=== PATIENT | male | born 1960 | race Caucasian/White ===

== ENCOUNTER 2019-07-20 04:54 | Emergency (ER) | payer SELFPAY | END 2019-07-20 06:52 | disposition home or self-care (01) | LOC: ERS 04:54 | DX: I10 Essential (primary) hypertension (principal) | CPT/HCPCS: 99283 ==

== ENCOUNTER 2020-03-16 12:45 | Inpatient (IN) | payer OTHER, SELFPAY ==
[2020-03-16] MEDS ORDERED: Diltiazem 125 MG/25 ML ONE (12:54)
--- NOTE | 2020-03-16 16:25 | PDOC.HHP ---
Hospitalist HPI - History of Present Illness Chest pain History of Present Illness: Patient is a 59-year-old male with a history of hypertension diabetes and hyperlipidemia who presented to the emergency department. Patient initially presented to a [facility] emergency department was then transferred to [facility] and ultimately transferred again here. The patient reports that on Thursday he had an episode of palpitations feeling like his heart was fluttering. He got out of bed, drank some coffee, waited a bit of time and the symptoms seem to resolve. He went back to bed and had no further problems. Last night the patient reports that his symptoms recurred. He was short of breath but felt less of the palpitations. He denied any cough or specific chest pain. That time the patient presented to the outside emergency department. There EKG confirmed patient was in A. fib with RVR. This chest x- ray appeared to show some mild central vascular congestion. He was started on a diltiazem drip with some rate control. He was given Lasix. Of note the patient also had a CT scan of the chest due to an elevated d-dimer. The CT showed multiple pulmonary nodules up to 1.3 cm with some nonspecific lymphadenopathy of the mediastinum. This was concerning for the possibility of metastatic disease. Apparently, had an episode of low sats and was started on oxygen. Because the patient was going to require admission he was transferred to [facility] emergency department. In route the patient apparently had a bolus of fluids given.He had a BNP of 147 his heart rate remained well controlled. He was given aspirin. He was subsequently told that his insurance would not cover his hospitalization at that facility and was subsequently transferred here. The patient had no complaints at the time of my exam. Denies palpitations or shortness of breath. States he feels like he could easily get up and go home. He denies any prior cardiac issues. He states that he had previously been taking Jardiance. With that he had lost weight and felt great. Subsequent to that he has not been able to get samples because drug reps or not visiting his primary care provider. Without it he has gained weight and does not feel as well. He also reports that he is supposed to be wearing CPAP but does not. ED Course: As above Hospitalist ROS - Review of Systems Constitutional: denies: fever, chills Respiratory: reports: shortness of breath. denies: cough Cardiovascular: reports: palpitations. denies: chest pain Gastrointestinal: denies: nausea, vomiting All other systems reviewed; all pertinent +/- noted in HPI/Subj - Medication Medications: pravastatin Fri March 16, 2020 13:37 RON Kelley Jt tablet : Strength - 40 mg : ORAL Patient Dose: 1 mg Oral once a day. metFORMIN ThuMarch 16, 2020 13:37 RON Kelley Jt tablet : Strength - 1,000 mg : ORAL Patient Dose: 1 mg Oral once a day. omeprazole ThuMarch 16, 2020 13:38 RON Kelley Jt tablet,delayed release (DR/EC) : Strength - 20 mg : ORAL Patient Dose: 1 mg Oral once a day. amLODIPine ThuMarch 16, 2020 13:39 RON Kelley Jt tablet : Strength - 10 mg : ORAL Patient Dose: 1 mg Oral once a day. hydrALAZINE oral ThuMarch 16, 2020 13:39 RON Kelley Jt tablet : Strength - 10 mg : ORAL Patient Dose: 1 mg Oral 2 times a day. lisinopril ThuMarch 16, 2020 13:39 RON Kelley Jt tablet : Strength - 5 mg : ORAL Patient Dose: 1 mg Oral once a day. Hospitalist History - Past Medical History Cardiac: reports: HTN, Hyperlipidemia Pulmonary: reports: Other (Obstructive sleep apnea) Gastrointestinal: reports: GERD Endocrine: reports: Diabetes - Past Surgical History Past Surgical History: reports: no pertinent history - Family History Family History: reports: cancer (Mother had breast cancer), cardiac disorder ( Father at 57 with coronary disease.) - Social History Smoking Status: Former smoker Tobacco Type: cigarettes Alcohol: reports: None Drugs: reports: marijuana Other Social History: . Patient is full code. His son Archie would be his surrogate decision maker should that become necessary. - Exam General Appearance: NAD, awake alert General - other findings: Obese Neck: supple, symmetric, no JVD, no thyromegaly, no lymphadenopathy, no carotid bruit Heart: no murmur, no gallops, no rubs, irregular Respiratory: CTAB, no wheezes, no rales, no ronchi, normal chest expansion, no tachypnea, normal percussion Gastrointestinal: soft, non-tender, non-distended, normal bowel sounds, no palpable masses, no hepatomegaly, no splenomegaly, no bruit Extremities: no cyanosis, no clubbing, no edema Skin: normal turgor Neurological: cranial nerve grossly intact, normal sensation to touch, no weakness, no focal deficits, no new deficit Musculoskeletal: normal tone, normal strength, no muscle wasting Psychiatric: normal affect, normal behavior, A&O x 3 Hospitalist Results - Labs Additional comment: Outside Labs: UA negative. ABG: pH 7.418, PCO2 38, PO2 58, HCO3 24. BNP 158 Covid screen negative CBC unremarkable. CMP - Gluc 198, Alk Phos 159, AST 56, otherwise nml. Trop 0.01/ - EKG Interpretation EKG: Persistent atrial fibrillation - Radiology Interpretation CT scan - chest Additional Comment: As stated above the patient has multiple pulmonary nodules up to 1.3 cm with some nonspecific mediastinal lymphadenopathy concerning for the possibility of metastatic disease. Hospitalist H&P A/P - Problem (1) Atrial fibrillation with rapid ventricular response Code(s): I48.91 - UNSPECIFIED ATRIAL FIBRILLATION Status: Acute (2) Diabetes mellitus Code(s): E11.9 - TYPE 2 DIABETES MELLITUS WITHOUT COMPLICATIONS Status: Acute (3) Hypertension Code(s): I10 - ESSENTIAL (PRIMARY) HYPERTENSION Status: Acute (4) Hyperlipidemia Code(s): E78.5 - HYPERLIPIDEMIA, UNSPECIFIED Status: Acute (5) Obesity Code(s): E66.9 - OBESITY, UNSPECIFIED Status: Acute - Plan Plan: Atrial fibrillation with rapid ventricular response: Patient is currently well controlled on diltiazem drip. Will give him therapeutic dose of Lovenox. Consult cardiology. We will hold his hydralazine and amlodipine as he will likely need to be on a more chronotropic calcium channel chris. Echo. Lung nodules: Need further evaluation when the afib is controlled. May be worth assessing now , prior to initiating the oral anticoagulation in case a biopsy may be needed. HTN: Continue Lisinopril. Holding Hydralazine and amlodipine for now. Will likely need oral BB or CCB with negative chronotropic affect. DM: Hold metformin since he had the CT PE protocol. Accuchecks. SSI. GERD: PPI.
[2020-03-16] MEDS ORDERED: Dextrose 5% in Water 1,000 ML IV PRN (16:43)
[2020-03-16] MEDS ORDERED: Dextrose 50% Abboject 50 ML SYRINGE SLOW IVP PRN (16:43)
[2020-03-16] MEDS ORDERED: Enoxaparin Sodium 120 MG/0.8 ML SYRINGE SC SCH ×2 (16:45→21:00)
[2020-03-16] MEDS ORDERED: metFORMIN 500 MG TAB PO SCH (17:00)
[2020-03-16] MEDS ORDERED: Amlodipine 10 MG TAB PO SCH (18:15)
[2020-03-16] MEDS: hydrALAZINE 10 MG TAB PO SCH (20:16)
[2020-03-16] MEDS ORDERED: Atorvastatin Calcium 10 MG TAB PO SCH (21:00)
--- NOTE | 2020-03-17 00:01 | CON ---
DATE OF CONSULTATION: 03/16/2020 INDICATION FOR CONSULTATION: A 59-year-old gentleman with new-onset atrial fibrillation with rapid ventricular response. HISTORY OF PRESENT ILLNESS: This very pleasant 59-year-old morbidly obese gentleman has had no previous cardiac history that he is aware of, but does have multiple risk factors for coronary disease. On Thursday evening, he noticed some palpitations, became short of breath, had some coughing. He then had some coffee, went back to bed and felt better and on evening, he had similar episodes, became more short of breath with heart rate also increasing and this morning, he woke up and decided to go to the emergency room at which time he was found to be in atrial fibrillation with rapid ventricular response. He was transferred [facility] to the [facility] and was informed that his insurance would not be accepted, they would not pay for his hospitalization. He was then transferred to [facility]. In the interim at [facility], he did undergo a CT scan which showed multiple pulmonary nodules up to 1.3 cm in diameter with mediastinal adenopathy with up to 2 cm lymph nodes noted. He also had some decrease in O2 saturations, however, this has improved since being here, being placed on oxygen. He was seen in the emergency room here, and he denied any chest pain. He has not had any chest pain throughout this, he did have some tightness, but he has had some recent coughing, but otherwise, he has not had any significant chest discomfort. EKG does not show any evidence of ischemia, and cardiac enzymes remain negative. At this time, he remains in atrial fibrillation. He is on IV diltiazem. The heart rate is anywhere between 90 to low 100s, and his blood pressure in the ER was improved, however, now is back up to the 190 systolically. He has not had his home medications yet, and we will reinstate these medications in order to lower the blood pressure. PAST MEDICAL HISTORY: Significant for hypertension, hypercholesterolemia, type 2 diabetes, sleep apnea. He does not wear mask. He has a history of pancreatitis frequently, but none in the last several years. SOCIAL HISTORY: He is . He has one child with no heart disease. He occasionally has marijuana on a social basis. He has no cigarette use. No alcohol use. He worked. 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 FAMILY HISTORY: His mother had breast cancer. Father at age 57 from coronary artery disease. ALLERGIES: NONE. MEDICATIONS: At home include: 1. Metformin. 2. Amlodipine. 3. Hydralazine. 4. Lisinopril. REVIEW OF SYSTEMS: He wears glasses. He has gastroesophageal reflux disease. He had the recent shortness of breath. Otherwise, review of systems is unremarkable. He did say he lost about 27 pounds since December after starting on Jardiance. Medication was then stopped, either he could not afford the medication or did not get the medicine, and then he has gained a few pounds back. Otherwise, his 12-point review of systems is unremarkable except for what was noted in the history of the present illness. PHYSICAL EXAMINATION: GENERAL: Reveals a very pleasant, well-developed, well-nourished gentleman, who is overweight. VITAL SIGNS: Blood pressure 123/94, heart rate is in the 90s to 100 and is irregular, respiratory rate is 20. HEENT: Shows the head to be normocephalic and atraumatic. Carotid pulses are present. There were no bruits. CHEST: Clear to auscultation. I could not hear any significant rales, rhonchi, or wheezing. CARDIOVASCULAR: Reveals an irregularly irregular rhythm. I did not hear any gross murmurs, heaves, thrills, bruits or rubs. ABDOMINAL: Exam shows morbid obesity without tenderness. I cannot palpate any masses. Positive bowel sounds are present. EXTREMITIES: Showed no clubbing, cyanosis, or edema. Pedal pulses are present. NEUROLOGICAL: He appears to be fully intact. There were no gross focal motor deficits. He is able to ambulate without difficulties. SKIN: Warm and dry. DIAGNOSTIC DATA: EKG shows atrial fibrillation with no ischemic changes. Heart rate was 99 beats per minute. Laboratory data was from an outside facility, but WBC was 10.2. BNP was 147. Cardiac enzymes are negative. Blood sugar was 198. I did not have any other laboratory data at this time. IMPRESSION: 1. Atrial fibrillation with rapid ventricular response, which has been under much better control with IV diltiazem. An echocardiogram has been ordered, and further recommendations for his atrial fibrillation concern will depend on the results of the echocardiogram, and the size of the left atrium and also left ventricular systolic function. I did have a long discussion with the patient about the possible etiologies of his atrial fibrillation and certainly given his history of diabetes, hypertension, hypercholesterolemia, he could have underlying coronary artery disease, and this will also need to be evaluated either by stress testing or cardiac catheterization. 2. Diabetes. This will be dealt with by the primary care service. The blood sugar was 198. Hopefully, he can go back on to the Jardiance which he said controlled the blood sugar well and also helped his weight. 3. Hypertension. We will need to reinstate his home medications in order to lower the blood pressure. We will continue to monitor this. 4. Hypercholesterolemia. He has been on pravastatin previously. I would resume this medication also now that he has been placed on atorvastatin since being in the hospital. 5. On the CT scan, he was noted to have pulmonary nodules, and I believe the finger waver has also been consulted on the patient. Obviously, if he has been found to have some type of malignancy this will play a significant role in how we treat this patient with his atrial fibrillation. HOSPITAL MEDICATIONS: At this time his medications in the hospital included: 1. IV diltiazem. 2. Aspirin 325 mg a day. 3. Lovenox. 4. Atorvastatin 10 mg a day. 5. Lisinopril 5 mg a day. 6. Protonix 40 mg a day. 7. Insulin p.r.n. as needed for the diabetes. His CHADS-VASc score is approximately 3. The patient will need to be on oral anticoagulation. Hopefully, we will be able to convert the patient back to sinus rhythm, but he certainly does have a risk for embolic phenomenon. Once he is back to sinus rhythm, we will need to find medication hopefully to keep him in sinus rhythm. If he converts with the diltiazem, then obviously we can continue this medication or he may need other potent antiarrhythmics. However, we will need to determine whether or not he has any underlying coronary artery disease in the interim. Job ID: [id number]
[2020-03-17] MEDS: Diltiazem HCl 125 MG, Admixture Fee 1 EACH in Sodium Chloride 0.9% 100 ML IVPB SCH ×2 (04:57→20:28)
[2020-03-17 05:19] LABS: Anion Gap 11 mmol/L (10-20); BUN (Urea Nitrogen) 9 mg/dL (8.4-25.7); Calc. Creatinine Clearance 201 mL/min (70-130); Calcium 9.2 mg/dL (7.8-10.44); Carbon Dioxide 28 mmol/L (22-29); Chloride 102 mmol/L (98-107); Estimated GFR-MDRD Greater than 90; Glucose 188 mg/dL (70-105); Potassium 3.7 mmol/L (3.5-5.1); Sodium 137 mmol/L (136-145)
[2020-03-17] MEDS: Acetaminophen 325 MG TAB PO PRN (06:18)
[2020-03-17] MEDS: HumaLOG 300 UNITS/3 ML VIAL SC PRN ×3 (06:19→20:33)
[2020-03-17] MEDS ORDERED: Amlodipine 10 MG TAB PO SCH (09:00)
[2020-03-17 10:19] LABS: Hemoglobin 13.4 g/dL (14.0-18.0); Platelet Count 180 thou/uL (130-400)
[2020-03-17] MEDS: Lisinopril 5 MG TAB PO SCH (10:19)
[2020-03-17] MEDS: hydrALAZINE 10 MG TAB PO SCH ×2 (10:20→20:28)
[2020-03-17] MEDS: Enoxaparin Sodium 120 MG/0.8 ML SYRINGE SC SCH ×2 (10:21→20:29)
--- NOTE | 2020-03-17 11:54 | PDOC.CPN ---
- Subjective Date: 03/17/20 Time: 12:00 Interval history: The pt seen and examined. No overnight events. No cardiac complaints. - Objective Allergies/Adverse Reactions: Allergies Allergy/AdvReac Type Severity Reaction Status Date / Time No Known Allergies Allergy Verified 03/16/20 16:16 Visit Medications: Current Medications Acetaminophen (Tylenol) 650 mg PO Q4H PRN PRN Reason: Headache/Fever/Mild Pain (1-3) Last Admin: 03/17/20 06:18 Dose: 650 mg Amlodipine Besylate (Norvasc) 10 mg PO DAILY [facility] Last Admin: 03/17/20 10:20 Dose: 10 mg Atorvastatin Calcium (Lipitor) 10 mg PO HS [facility] Last Admin: 03/16/20 20:16 Dose: 10 mg Dextrose/Water (Dextrose 50%) 25 gm SLOW IVP PRN PRN PRN Reason: Hypoglycemia Enoxaparin Sodium (Lovenox) 120 mg SC 0900,2100 [facility] Last Admin: 03/17/20 10:21 Dose: 120 mg Glucagon (Glucagon) 1 mg IM PRN PRN PRN Reason: Hypoglycemia Hydralazine HCl (Apresoline) 10 mg PO BID [facility] Last Admin: 03/17/20 10:20 Dose: 10 mg Dextrose/Water (D5w) 1,000 mls @ 0 mls/hr IV .Q0M PRN PRN Reason: Hypoglycemia Diltiazem HCl 125 mg/Miscellaneous Medication 1 each/ Sodium Chloride 125 mls @ 7.5 mls/hr IVPB INF [facility]; Protocol Last Admin: 03/17/20 04:57 Dose: 125 mls Insulin Human Lispro (Humalog) 0 units SC .MILD SLIDING SCALE PRN PRN Reason: Mild Correctional Scale Last Admin: 03/17/20 06:19 Dose: 2 unit Insulin Human Lispro (Humalog) 0 units SC .BEDTIME SLIDING SC PRN PRN Reason: Bedtime Correctional Scale Lisinopril (Zestril) 5 mg PO DAILY [facility] Last Admin: 03/17/20 10:19 Dose: 5 mg Pantoprazole Sodium (Protonix) 40 mg PO DAILY [facility] Last Admin: 03/17/20 10:21 Dose: 40 mg Vital Signs & Weight: Vital Signs Temp Pulse Resp BP Pulse Ox 03/17/20 10:16 98.3 F 88 16 129/75 95 03/17/20 03:16 97.9 F 66 18 154/89 H 92 L Weight 276 lb 3.2 oz - Physical Exam General: alert & oriented x3 HEENT: mucus membranes moist Neck: supple neck Cardiac: irregularly regular Lungs: clear to auscultation Neuro: cranial nerve 2-12 intact - Labs Result Diagrams: 03/17/20 09:31 03/17/20 04:19 - Telemetry Supraventricular conduction: atrial fibrillation - Assessment/Plan Assessment/Plan: 1. New onset Afib with RVR - HR has been 90-100s with Diltiazem @ 7.5mg/h; will start coreg 3.125mg BID from today; on Lovenox BID 2. HTN - has been stable 3. HLD - on Statin 4. DM type 2 - 5. multiple pulmonary nodules up to 1.3 cm in diameter with mediastarnal adenopathy with up to 2cm lymph nodes - 6. Sleep apnea - Per the pt, he has not used Cpap machine at home; strongly recommend to use Cpap or discuss with his doctor about the option of his masks. 7. Obese - the pt is willing to start wt management and regular exercise MAR reviewed Pt. seen and eval. by me. I agree with the A/P by the FOOD SERVICE HELPER. Pt. was seen by pulmonology and advised to be followed as an outpt. Echo; EF mildly decreased. This may be due to the tachycardia associated with the atrial fib. i would advise he undergo stress testing to r/o ischemia as a possible etiology of the atrial fibrillation. If the stress test indicates ischemia then he will be advised to undergo a cardiac cath. prema
[2020-03-17] MEDS ORDERED: Carvedilol 3.125 MG TAB PO SCH (12:00)
[2020-03-17 13:18] VITALS: BMI 35.4
--- NOTE | 2020-03-17 15:29 | CON ---
DATE OF CONSULTATION: 03/17/2020 CONSULTING PHYSICIAN: Doroteo Orta MD REASON FOR CONSULTATION: Lung nodules. HISTORY OF PRESENT ILLNESS: This is a 59-year-old male, who initially presented to the [place] [facility] with shortness of breath. His initial workup consisted of a CT pulmonary angiogram that showed few bilateral pulmonary nodules, the largest of which was 1.3 cm in the left lower lobe. He also had some small bilateral effusions and some near 2 cm mediastinal lymph nodes. I have reviewed the films. He was hospitalized, I believe for atrial fibrillation with a rapid ventricular response and there was a question about the need for further cardiac testing. PAST MEDICAL HISTORY: 1. He has no previous history of cancer. 2. No history of bleeding disorders. 3. No history of exposure to tuberculosis or fungus that he knows of. 4. Hypertension. 5. Hyperlipidemia. 6. Type 2 diabetes mellitus. 7. MALLY. 8. Pancreatitis. PAST SURGICAL HISTORY: None. FAMILY MEDICAL HISTORY: Remarkable for breast cancer in the patient's mother. Coronary artery disease in the patient's father. SOCIAL HISTORY: The patient smoked off and on until age 54. He intermittently smokes marijuana. 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 Does not consume alcohol. REVIEW OF SYSTEMS: Denies hemoptysis. Denies fever, chills, nausea, vomiting, hematemesis, melena, hematochezia, hematuria, or dysuria. PHYSICAL EXAMINATION: VITAL SIGNS: Temperature 98.6, pulse 93, respirations 18, O2 saturation 94% on room air, blood pressure 151/69. GENERAL: The patient is awake, alert, and in no distress. HEENT: Unremarkable. NECK: No adenopathy. No JVD. No deviation of trachea. LUNGS: Clear without wheezing or rhonchi. CARDIAC: Irregularly irregular without murmur. ABDOMEN: Soft and nontender. EXTREMITIES: No clubbing, cyanosis, or edema. LABORATORY DATA: Hematocrit 42.3 and platelet count 180. Sodium 137, potassium 3.7, chloride 102, CO2 of 28, BUN 9, creatinine 0.7, glucose 188. The left lower lobe nodule has a 1.3 cm size. It almost looks hamartomatous in appearance. The other nodules are small. The mediastinal lymph nodes are actually not that impressive. ASSESSMENT: Scattered bilateral pulmonary nodules. In this instance, I would favor granulomatous disease over malignancy as a cause. However, given his smoking history, these bear-watching. Right now, they are too small to biopsy. RECOMMENDATIONS: I first recommend an outpatient PET scan. I am not sure whether or not the patient's insurance will cover that. If he cannot have outpatient PET scan, then he will need to have serial CT scans. No further workup needs to be done while he is in the hospital. I have instructed him to follow up in my office in 2-3 months. We will make further arrangements for testing at that time. Job ID: [id number]
[2020-03-17] MEDS: Carvedilol 3.125 MG TAB PO SCH (17:16)
--- NOTE | 2020-03-17 18:13 | PDOC.HOSPP ---
- Subjective Encounter Date: 03/17/20 Encounter Time: 10:00 Subjective: pt up in bed no complains - Objective Vital Signs & Weight: Vital Signs (12 hours) Temp Pulse Resp BP Pulse Ox 03/17/20 15:47 98.4 F 94 18 144/85 H 94 L 03/17/20 12:11 98.6 F 93 18 151/69 H 94 L 03/17/20 10:16 98.3 F 88 16 129/75 95 Weight Admit Weight 276 lb Weight 276 lb I&O: 03/16/20 03/17/20 03/18/20 06:59 06:59 06:59 Intake Total 690 720 Output Total 1100 850 Balance -410 -130 Result Diagrams: 03/17/20 09:31 03/17/20 04:19 Additional Labs: Accuchecks 03/17/20 03/17/20 03/17/20 17:20 11:25 05:57 POC Glucose 164 H 222 H 199 H 03/16/20 20:32 POC Glucose 154 H Hospitalist ROS - Review of Systems Cardiovascular: denies: chest pain, palpitations, orthopnea, paroxysmal noc. dyspnea, edema, light headedness, other Gastrointestinal: denies: nausea, vomiting, abdominal pain, diarrhea, constipation, melena, hematochezia, other Genitourinary: denies: dysuria, frequency, incontinence, hematuria, retention, other - Medication Medications: Active Medications Generic Name Dose Route Start Last Admin Trade Name Freq PRN Reason Stop Dose Admin Acetaminophen 650 mg 03/16/20 15:57 03/17/20 06:18 Tylenol PO 650 mg Q4H PRN Administration Headache/Fever/Mild Pain (1-3) Atorvastatin Calcium 10 mg 03/16/20 21:00 03/16/20 20:16 Lipitor PO 10 mg HS ALENA Administration Carvedilol 3.125 mg 03/17/20 17:00 03/17/20 17:16 Coreg PO 3.125 mg BID-WM ALENA Administration Enoxaparin Sodium 120 mg 03/17/20 09:00 03/17/20 10:21 Lovenox SC 120 mg 0900,2100 ALENA Administration Hydralazine HCl 10 mg 03/16/20 21:00 03/17/20 10:20 Apresoline PO 10 mg BID ALENA Administration Diltiazem HCl 125 mg/ 125 mls @ 7.5 mls/hr 03/17/20 03:45 03/17/20 04:57 Miscellaneous Medication 1 IVPB 125 mls each/ Sodium Chloride INF ALENA Administration Protocol Insulin Human Lispro 0 units 03/16/20 16:43 03/17/20 12:13 Humalog SC 3 unit .MILD SLIDING SCALE PRN Administration Mild Correctional Scale Lisinopril 5 mg 03/17/20 09:00 03/17/20 10:19 Zestril PO 5 mg DAILY ALENA Administration Pantoprazole Sodium 40 mg 03/17/20 09:00 03/17/20 10:21 Protonix PO 40 mg DAILY ALENA Administration - Exam Neck: negative: supple, symmetric, no JVD, no thyromegaly, no lymphadenopathy, no carotid bruit, JVD Heart: negative: RRR, no murmur, no gallops, no rubs, normal peripheral pulses, irregular, diminshed peripheral pulses, murmur present, II/IV, III/IV Respiratory: negative: CTAB, no wheezes, no rales, no ronchi, normal chest expansion, no tachypnea, normal percussion, rales, rhonchi, tachypneic, wheezes Hosp A/P (1) Atrial fibrillation with rapid ventricular response Code(s): I48.91 - UNSPECIFIED ATRIAL FIBRILLATION Status: Acute (2) Pulmonary nodule Code(s): R91.1 - SOLITARY PULMONARY NODULE Status: Acute (3) Diabetes mellitus Code(s): E11.9 - TYPE 2 DIABETES MELLITUS WITHOUT COMPLICATIONS Status: Acute (4) Hyperlipidemia Code(s): E78.5 - HYPERLIPIDEMIA, UNSPECIFIED Status: Acute (5) Hypertension Code(s): I10 - ESSENTIAL (PRIMARY) HYPERTENSION Status: Acute (6) Obesity Code(s): E66.9 - OBESITY, UNSPECIFIED Status: Acute - Plan pt up in bed no complains. pt still has Cardizem. per pulmonary note no acute intervention for now. pt states that he recently had a viral infection. echo indicated ef of 45-50%
[2020-03-17] MEDS: Atorvastatin Calcium 20 MG TAB PO SCH (20:29)
[2020-03-18 04:10] LABS: #Eosinphils 0.1 thou/uL (0.0-0.7); #Monocytes 0.5 thou/uL (0.11-0.59); #Neutrophils 5.3 thou/uL (1.40-6.50); %Basophils 0.5 % (0.0-1.0); %Eosinophils 1.4 % (0.0-10.0); %Monocytes 5.8 % (0.0-10.0); %Neutrophils 67.3 % (42.0-75.0); Hemoglobin 13.4 g/dL (14.0-18.0); Mean Corpuscular HGB CONC 31.5 g/dL (32.0-36.0); Mean Corpuscular Hemoglobin 27.1 pg (27.0-31.0); Mean Corpuscular Volume 85.8 fL (78.0-98.0); Platelet Count 175 thou/uL (130-400); RBC Distribution Width 13.3 % (11.5-14.5); Red Blood Cell (RBC) Count 4.97 mill/uL (4.70-6.10); White Blood Cell (WBC) Count 7.9 thou/uL (4.8-10.8)
[2020-03-18 04:30] LABS: Anion Gap 12 mmol/L (10-20); BUN (Urea Nitrogen) 11 mg/dL (8.4-25.7); Calc. Creatinine Clearance 180 mL/min (70-130); Carbon Dioxide 27 mmol/L (22-29); Chloride 104 mmol/L (98-107); Estimated GFR-MDRD Greater than 90; Glucose 252 mg/dL (70-105); Sodium 139 mmol/L (136-145)
[2020-03-18] MEDS ORDERED: Regadenoson 0.4 MG/5 ML SYRINGE ONE (10:44)
[2020-03-18] MEDS ORDERED: Polyethylene Glycol 3350 17 GM Packet PO PRN (11:07)
[2020-03-18] MEDS ORDERED: Bisacodyl 5 MG TAB PO SCH (11:15)
--- NOTE | 2020-03-18 12:41 | PDOC.CPN ---
- Subjective Date: 03/18/20 Time: 12:44 Interval history: The pt seen and examined. No overnight events. No cardiac complaints. - Objective Allergies/Adverse Reactions: Allergies Allergy/AdvReac Type Severity Reaction Status Date / Time No Known Allergies Allergy Verified 03/16/20 16:16 Visit Medications: Current Medications Acetaminophen (Tylenol) 650 mg PO Q4H PRN PRN Reason: Headache/Fever/Mild Pain (1-3) Last Admin: 03/17/20 06:18 Dose: 650 mg Amlodipine Besylate (Norvasc) 5 mg PO DAILY [facility] Atorvastatin Calcium (Lipitor) 20 mg PO [facility] Last Admin: 03/17/20 20:29 Dose: 20 mg Bisacodyl (Dulcolax) 10 mg PO NOW [facility] Stop: 03/18/20 14:00 Carvedilol (Coreg) 3.125 mg PO BID[facility] Last Admin: 03/17/20 17:16 Dose: 3.125 mg Dextrose/Water (Dextrose 50%) 25 gm SLOW IVP PRN PRN PRN Reason: Hypoglycemia Diltiazem HCl (Cardizem Sr) 90 mg PO BID [facility] Diltiazem HCl (Cardizem Sr) 90 mg PO ONE [facility] Enoxaparin Sodium (Lovenox) 120 mg SC 0900,2100 [facility] Last Admin: 03/17/20 20:29 Dose: 120 mg Glucagon (Glucagon) 1 mg IM PRN PRN PRN Reason: Hypoglycemia Hydralazine HCl (Apresoline) 10 mg PO BID [facility] Last Admin: 03/17/20 20:28 Dose: 10 mg Dextrose/Water (D5w) 1,000 mls @ 0 mls/hr IV .Q0M PRN PRN Reason: Hypoglycemia Diltiazem HCl 125 mg/Miscellaneous Medication 1 each/ Sodium Chloride 125 mls @ 7.5 mls/hr IVPB INF [facility]; Protocol Last Admin: 03/17/20 20:28 Dose: 125 mls Insulin Human Lispro (Humalog) 0 units SC .MILD SLIDING SCALE PRN PRN Reason: Mild Correctional Scale Last Admin: 03/17/20 12:13 Dose: 3 unit Insulin Human Lispro (Humalog) 0 units SC .BEDTIME SLIDING SC PRN PRN Reason: Bedtime Correctional Scale Last Admin: 03/17/20 20:33 Dose: 2 unit Lisinopril (Zestril) 5 mg PO DAILY [facility] Last Admin: 03/17/20 10:19 Dose: 5 mg Pantoprazole Sodium (Protonix) 40 mg PO DAILY [facility] Last Admin: 03/17/20 10:21 Dose: 40 mg Polyethylene Glycol (Miralax) 17 gm PO DAILY [facility] Polyethylene Glycol (Miralax) 17 gm PO DAILYPRN PRN PRN Reason: Constipation Sodium Chloride (Flush - Normal Saline) 10 ml IVF Q12HR [facility] Last Admin: 03/18/20 10:17 Dose: Not Given Sodium Chloride (Flush - Normal Saline) 10 ml IVF PRN PRN PRN Reason: Saline Flush Vital Signs & Weight: Vital Signs Temp Pulse Resp BP Pulse Ox 03/18/20 07:57 98.1 F 86 20 121/77 92 L 03/18/20 03:06 97.6 F 89 18 122/65 92 L Admit Weight 276 lb Weight 281 lb 9.6 oz - Physical Exam General: alert & oriented x3 HEENT: mucus membranes moist Neck: supple neck Cardiac: irregularly regular Lungs: clear to auscultation Neuro: cranial nerve 2-12 intact Extremities: no edema - Labs Result Diagrams: 03/18/20 03:55 03/18/20 03:55 - Telemetry Supraventricular conduction: atrial fibrillation - Assessment/Plan Assessment/Plan: 1. New onset Afib with RVR - HR has been 60-90s with Coreg 3.125mg BID and Diltiazem @ 7.5mg/h which will changed to 90mg BID from today; on Lovenox BID; stress test was done today and the result is pending 2. HTN - has been stable 3. HLD - on Statin 4. DM type 2 - 5. multiple pulmonary nodules up to 1.3 cm in diameter with mediastarnal adenopathy with up to 2cm lymph nodes - 6. Sleep apnea - Per the pt, he has not used Cpap machine at home; strongly recommend to use Cpap or discuss with his doctor about the option of his masks. 7. Obese - the pt is willing to start wt management and regular exercise MAR reviewed * Echo on 03/17/2020 with EF 45-50%, mod LAE, mild-mod MR, and mild TR <Addendum at 1750> HR went up to 110s with Diltiazem 90mg BID and Coreg 3.125mg BID; will increase Coreg to 6.25mg BID from this PM Pt. seen and eval. by me. 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 The second part of the stress test is for tomorrow. He is still tachycardic. Coreg increased. Add digoxin if HR still elevated. prema
[2020-03-18] MEDS ORDERED: Diltiazem HCl SR 90 mg Capsule PO SCH (12:45)
--- NOTE | 2020-03-18 13:29 | PDOC.HOSPP ---
- Subjective Encounter Date: 03/18/20 Encounter Time: 08:45 Subjective: pt up in bed did not sleep well last night. - Objective Vital Signs & Weight: Vital Signs (12 hours) Temp Pulse Resp BP Pulse Ox 03/18/20 07:57 98.1 F 86 20 121/77 92 L 03/18/20 03:06 97.6 F 89 18 122/65 92 L Weight Admit Weight 276 lb Weight 281 lb 9.6 oz I&O: 03/17/20 03/18/20 03/19/20 06:59 06:59 06:59 Intake Total 690 1610 Output Total 1100 1450 320 Balance -410 160 -320 Result Diagrams: 03/18/20 03:55 03/18/20 03:55 Additional Labs: Accuchecks 03/18/20 03/18/20 03/17/20 10:59 05:48 20:21 POC Glucose 202 H 224 H 247 H 03/17/20 17:20 POC Glucose 164 H Hospitalist ROS - Review of Systems Cardiovascular: denies: chest pain, palpitations, orthopnea, paroxysmal noc. dyspnea, edema, light headedness, other Gastrointestinal: denies: nausea, vomiting, abdominal pain, diarrhea, constipation, melena, hematochezia, other Genitourinary: denies: dysuria, frequency, incontinence, hematuria, retention, other - Medication Medications: Active Medications Generic Name Dose Route Start Last Admin Trade Name Freq PRN Reason Stop Dose Admin Acetaminophen 650 mg 03/16/20 15:57 03/17/20 06:18 Tylenol PO 650 mg Q4H PRN Administration Headache/Fever/Mild Pain (1-3) Atorvastatin Calcium 20 mg 03/17/20 21:00 03/17/20 20:29 Lipitor PO 20 mg HS [facility] Administration Carvedilol 3.125 mg 03/17/20 17:00 03/17/20 17:16 Coreg PO 3.125 mg BID-WM [facility] Administration Enoxaparin Sodium 120 mg 03/17/20 09:00 03/17/20 20:29 Lovenox SC 120 mg 0900,2100 [facility] Administration Hydralazine HCl 10 mg 03/16/20 21:00 03/17/20 20:28 Apresoline PO 10 mg BID [facility] Administration Diltiazem HCl 125 mg/ 125 mls @ 7.5 mls/hr 03/17/20 03:45 03/17/20 20:28 Miscellaneous Medication 1 IVPB 125 mls each/ Sodium Chloride INF [facility] Administration Protocol Insulin Human Lispro 0 units 03/16/20 16:43 03/17/20 12:13 Humalog SC 3 unit .MILD SLIDING SCALE PRN Administration Mild Correctional Scale Insulin Human Lispro 0 units 03/16/20 16:43 03/17/20 20:33 Humalog SC 2 unit .BEDTIME SLIDING SC PRN Administration Bedtime Correctional Scale Lisinopril 5 mg 03/17/20 09:00 03/17/20 10:19 Zestril PO 5 mg DAILY [facility] Administration Pantoprazole Sodium 40 mg 03/17/20 09:00 03/17/20 10:21 Protonix PO 40 mg DAILY [facility] Administration Sodium Chloride 10 ml 03/17/20 21:00 03/18/20 10:17 Flush - Normal Saline IVF Not Given Q12HR [facility] - Exam Heart: negative: RRR, no murmur, no gallops, no rubs, normal peripheral pulses, irregular, diminshed peripheral pulses, murmur present, II/IV, III/IV Respiratory: negative: CTAB, no wheezes, no rales, no ronchi, normal chest expansion, no tachypnea, normal percussion, rales, rhonchi, tachypneic, wheezes Gastrointestinal: negative: soft, non-tender, non-distended, normal bowel sounds , no palpable masses, no hepatomegaly, no splenomegaly, no bruit, no guarding, no rigidity, tender to palpation, distended, diminished bowl sounds, voluntary guarding Extremities: negative: no cyanosis, no clubbing, no edema, 1+ LE edema, 2+ LE edema, clubbing Hosp A/P (1) Atrial fibrillation with rapid ventricular response Code(s): I48.91 - UNSPECIFIED ATRIAL FIBRILLATION Status: Acute (2) Pulmonary nodule Code(s): R91.1 - SOLITARY PULMONARY NODULE Status: Acute (3) Diabetes mellitus Code(s): E11.9 - TYPE 2 DIABETES MELLITUS WITHOUT COMPLICATIONS Status: Acute (4) Hyperlipidemia Code(s): E78.5 - HYPERLIPIDEMIA, UNSPECIFIED Status: Acute (5) Hypertension Code(s): I10 - ESSENTIAL (PRIMARY) HYPERTENSION Status: Acute (6) Obesity Code(s): E66.9 - OBESITY, UNSPECIFIED Status: Acute - Plan pt up in bed no complains. pt still has Cardizem. per pulmonary note no acute intervention for now. pt states that he recently had a viral infection. echo indicated ef of 45-50% 03/18 per pulm he will follow up as outpatient and i have told him about getting a PET scan. He is going for stress test today and his iv Cardizem will be switched to to oral. he is on Lovenox will switch to eliquis on discharge.
[2020-03-18] MEDS: Diltiazem HCl 125 MG, Admixture Fee 1 EACH in Sodium Chloride 0.9% 100 ML IVPB SCH (13:50)
[2020-03-18] MEDS: Enoxaparin Sodium 120 MG/0.8 ML SYRINGE SC SCH ×2 (14:04→20:42)
[2020-03-18] MEDS: hydrALAZINE 10 MG TAB PO SCH ×2 (14:25→20:44)
[2020-03-18] MEDS: Carvedilol 3.125 MG TAB PO SCH ×2 (14:25→17:10)
[2020-03-18] MEDS: Amlodipine 5 MG TAB PO SCH (14:56)
[2020-03-18] MEDS: Lisinopril 5 MG TAB PO SCH (14:56)
[2020-03-18] MEDS ORDERED: Carvedilol 3.125 MG TAB PO SCH (18:00)
[2020-03-18] MEDS ORDERED: Digoxin 0.5 MG/2 ML AMP SLOW IVP PRN (19:15)
[2020-03-18] MEDS ORDERED: Digoxin 0.5 MG/2 ML AMP SLOW IVP SCH (19:15)
[2020-03-18] MEDS: Acetaminophen 325 MG TAB PO PRN (19:27)
[2020-03-18] MEDS: Diltiazem HCl SR 90 mg Capsule PO SCH (20:43)
[2020-03-18] MEDS: Atorvastatin Calcium 20 MG TAB PO SCH (20:44)
[2020-03-18] MEDS: HumaLOG 300 UNITS/3 ML VIAL SC PRN (20:45)
[2020-03-19] MEDS: Diltiazem HCl SR 90 mg Capsule PO SCH (08:55)
[2020-03-19] MEDS: hydrALAZINE 10 MG TAB PO SCH (08:55)
[2020-03-19] MEDS: Lisinopril 5 MG TAB PO SCH (08:55)
[2020-03-19] MEDS: Amlodipine 5 MG TAB PO SCH (08:55)
[2020-03-19] MEDS: Carvedilol 6.25 MG TAB PO SCH ×2 (08:55→16:48)
[2020-03-19] MEDS: Enoxaparin Sodium 120 MG/0.8 ML SYRINGE SC SCH (08:56)
[2020-03-19] MEDS ORDERED: Polyethylene Glycol 3350 17 GM Packet PO SCH (09:00)
[2020-03-19] MEDS ORDERED: Iopamidol 370 76% 100 ML VIAL ONE (09:06)
[2020-03-19] MEDS ORDERED: Iopamidol 370 76% 50 ML VIAL FS ONE (09:06)
--- NOTE | 2020-03-19 09:08 | NM ---
EXAM: NM Cardiac Stress W EF WF PROVIDED CLINICAL HISTORY: Atrial fibrillation, hypertension, chest pain, shortness of breath. COMPARISON: 06/19/2009 FINDINGS: There is heterogeneous uptake seen within the left ventricular myocardium with an area of reversibili ty seen involving the distal anterolateral left ventricular wall. Relatively fixed defect is seen involving the posterior apical wall which may represent an area of mild scarring. There is dilatation of the left ventricle. Quantitative analysis demonstrates significant global hypokinesis. There is normal ventricular wall thickening. Calculated left ventricular ejection fraction is 28%. Left ventri cular ejection fraction on study in 2008 was 43%. IMPRESSION: 1. Abnormal myocardial perfusion study with [id number] area of reversibility involving the dist al anterolateral left ventricular wall. 2. Dilatation of the left ventricle. 3. Global hypokinesis and diminished LVEF of 28%.
[2020-03-19] MEDS ORDERED: Communication Order-Pharmacy FS SCH (12:45)
--- NOTE | 2020-03-19 12:53 | PDOC.CPN ---
- Subjective Date: 03/19/20 Time: 12:00 - Review of Systems General: denies: fever/chills, weight/appetite/sleep changes, night sweats, fatigue Respiratory: denies: cough, congestion, shortness of breath, exercise intolerance Cardiovascular: denies: chest pain, palpitation, edema, paroxysmal nocturnal dyspnea, orthopnea Gastrointestinal: denies: nausea, vomiting, diarrhea, constipation, abd pain, GI bleeding Musculoskeletal: denies: pain, tenderness, stiffness, swelling, arthritis/ arthralgias Neurological: denies: numbness, syncope, seizure, weakness - Objective Allergies/Adverse Reactions: Allergies Allergy/AdvReac Type Severity Reaction Status Date / Time No Known Allergies Allergy Verified 03/16/20 16:16 Visit Medications: Current Medications Acetaminophen (Tylenol) 650 mg PO Q4H PRN PRN Reason: Headache/Fever/Mild Pain (1-3) Last Admin: 03/18/20 19:27 Dose: 650 mg Amlodipine Besylate (Norvasc) 5 mg PO DAILY [facility] Last Admin: 03/19/20 08:55 Dose: 5 mg Atorvastatin Calcium (Lipitor) 20 mg PO HS [facility] Last Admin: 03/18/20 20:44 Dose: 20 mg Carvedilol (Coreg) 6.25 mg PO BID-WM [facility] Last Admin: 03/19/20 08:55 Dose: 6.25 mg Dextrose/Water (Dextrose 50%) 25 gm SLOW IVP PRN PRN PRN Reason: Hypoglycemia Diltiazem HCl (Cardizem Sr) 90 mg PO BID [facility] Last Admin: 03/19/20 08:55 Dose: 90 mg Enoxaparin Sodium (Lovenox) 120 mg SC 0900,2100 [facility] Last Admin: 03/19/20 08:56 Dose: 120 mg Glucagon (Glucagon) 1 mg IM PRN PRN PRN Reason: Hypoglycemia Hydralazine HCl (Apresoline) 10 mg PO BID [facility] Last Admin: 03/19/20 08:55 Dose: 10 mg Dextrose/Water (D5w) 1,000 mls @ 0 mls/hr IV .Q0M PRN PRN Reason: Hypoglycemia Insulin Human Lispro (Humalog) 0 units SC .MILD SLIDING SCALE PRN PRN Reason: Mild Correctional Scale Last Admin: 03/17/20 12:13 Dose: 3 unit Insulin Human Lispro (Humalog) 0 units SC .BEDTIME SLIDING SC PRN PRN Reason: Bedtime Correctional Scale Last Admin: 03/18/20 20:45 Dose: 3 unit Lisinopril (Zestril) 5 mg PO DAILY [facility] Last Admin: 03/19/20 08:55 Dose: 5 mg Miscellaneous Information (Communication Order-Pharmacy) 0 each FS ONE [facility] Pantoprazole Sodium (Protonix) 40 mg PO DAILY [facility] Last Admin: 03/19/20 08:56 Dose: 40 mg Polyethylene Glycol (Miralax) 17 gm PO DAILY [facility] Last Admin: 03/19/20 08:56 Dose: Not Given Polyethylene Glycol (Miralax) 17 gm PO DAILYPRN PRN PRN Reason: Constipation Sodium Chloride (Flush - Normal Saline) 10 ml IVF Q12HR [facility] Last Admin: 03/19/20 08:56 Dose: 10 ml Sodium Chloride (Flush - Normal Saline) 10 ml IVF PRN PRN PRN Reason: Saline Flush Vital Signs & Weight: Vital Signs Temp Pulse Resp BP Pulse Ox 03/19/20 12:00 98.7 F 95 18 148/87 H 97 03/19/20 07:30 97.9 F 79 20 157/97 H 95 03/19/20 03:57 97.7 F 87 20 147/97 H 97 Admit Weight 276 lb Weight 283 lb - Quality Measures Condition: Atrial Fibrillation/Flutter (hx or current) - Physical Exam HEENT: normocephaly Neck: no JVD/HJR, no masses Cardiac: irregularly regular Lungs: clear to auscultation Neuro: grossly intact Abdomen: unremarkable Extremities: no edema Musculoskeletal: normal range of motion - Labs Result Diagrams: 03/18/20 03:55 03/18/20 03:55 - Telemetry Supraventricular conduction: atrial fibrillation - Assessment/Plan Assessment/Plan: 1. New onset Afib with RVR - HR has been 60-90s with Coreg 3.125mg BID and Diltiazem , on Lovenox BID; second 1/2 of stress test was done today and it is positive for ischemia and the EF is severely compromised. Plan for cardiac cath today. Procedure and risks explained to the pt. 2. HTN - has been stable 3. HLD - on Statin 4. DM type 2 - 5. multiple pulmonary nodules up to 1.3 cm in diameter with mediastarnal adenopathy with up to 2cm lymph nodes - 6. Sleep apnea - Per the pt, he has not used Cpap machine at home; strongly recommend to use Cpap or discuss with his doctor about the option of his masks. 7. Obese - the pt is willing to start wt management and regular exercise MAR reviewed * Echo on 03/17/2020 with EF 45-50%, mod LAE, mild-mod MR, and mild TR
[2020-03-19] MEDS ORDERED: Nitroglycerin 100MG/250ML BOT 250 ML ONE (13:10)
[2020-03-19] MEDS ORDERED: Heparin 10,000 UNITS/1 ML VIAL ONE (13:10)
[2020-03-19] MEDS ORDERED: Verapamil 5 MG/2 ML VIAL ONE (13:10)
[2020-03-19] MEDS ORDERED: Midazolam HCl 2 mg/2 ml Vial ONE (13:12)
[2020-03-19] MEDS ORDERED: Sodium Chloride 0.9% 200 ML IV PRN (14:04)
[2020-03-19] MEDS ORDERED: Acetaminophen/Codeine 30-300mg Tablet PO PRN ×2 (14:04)
[2020-03-19] MEDS ORDERED: Nitroglycerin 0.4 MG TAB (25 Tab Bottle) SL PRN (14:04)
[2020-03-19 16:22] VITALS: BP 159/74; TEMP 98.4
[2020-03-19] MEDS ORDERED: Apixaban 5 MG TAB PO SCH (21:00)
== END 2020-03-19 20:41 | disposition home or self-care (01) | DRG 287 ==
LOC: ERS 12:45 → 2NO 14:33
PROVIDERS: ADMIT Internal Medicine; ATTEND Internal Medicine
PROC: 4A023N7 Measurement of Cardiac Sampling and Pressure, Left Heart, Percutaneous Approach (ICD-10-PCS; principal; 2020-03-19)
PROC: B2111ZZ Fluoroscopy of Multiple Coronary Arteries using Low Osmolar Contrast (ICD-10-PCS; 2020-03-19)
PROC: B2151ZZ Fluoroscopy of Left Heart using Low Osmolar Contrast (ICD-10-PCS; 2020-03-19)
DX: I48.91 Unspecified atrial fibrillation (principal); I10 Essential (primary) hypertension; E11.9 Type 2 diabetes mellitus without complications; E78.5 Hyperlipidemia, unspecified; G47.33 Obstructive sleep apnea (adult) (pediatric); K21.9 Gastro-esophageal reflux disease without esophagitis; E66.01 Morbid (severe) obesity due to excess calories; E78.00 Pure hypercholesterolemia, unspecified; Z68.36 Body mass index [BMI] 36.0-36.9, adult; Z79.01 Long term (current) use of anticoagulants
CPT/HCPCS: 36415; 36416; 78452; 80048; 83735; 85014; 85018; 85025; 85049; 93005; 93017; 93306; 93458; 96365; 96366; 99152; 99153; A9500; C1769; J1644; J1650; J2250; J2785; J3490; Q9967

== ENCOUNTER 2020-04-08 01:59 | Inpatient (IN) | payer OTHER ==
[2020-04-08 02:34] LABS: White Blood Cell (WBC) Count 7.7 thou/uL (4.8-10.8)
[2020-04-08 02:35] LABS: #Basophils 0.1 thou/uL (0.0-0.2); #Eosinphils 0.1 thou/uL (0.0-0.7); #Lymphocytes 2.1 thou/uL (1.20-3.40); #Monocytes 0.5 thou/uL (0.11-0.59); %Basophils 1.1 % (0.0-1.0); %Eosinophils 1.6 % (0.0-10.0); %Lymphocytes 26.9 % (21.0-51.0); %Monocytes 6.3 % (0.0-10.0); Hemoglobin 13.9 g/dL (14.0-18.0); Mean Corpuscular HGB CONC 32.9 g/dL (32.0-36.0); Mean Corpuscular Hemoglobin 26.7 pg (27.0-31.0); Mean Corpuscular Volume 81.2 fL (78.0-98.0); Platelet Count 154 thou/uL (130-400); RBC Distribution Width 13.2 % (11.5-14.5); Red Blood Cell (RBC) Count 5.22 mill/uL (4.70-6.10)
[2020-04-08] MEDS ORDERED: Aspirin 325 MG TAB ONE (02:36)
[2020-04-08] MEDS ORDERED: Diltiazem 125 MG/25 ML ONE (02:37)
[2020-04-08 03:03] LABS: ALT (SGPT) 44 U/L (8-55); AST (SGOT) 39 U/L (5-34); Albumin 4.5 g/dL (3.5-5.0); Alkaline Phosphatase 125 U/L (40-110); Anion Gap 15 mmol/L (10-20); BUN (Urea Nitrogen) 8 mg/dL (8.4-25.7); Bilirubin, Total 0.5 mg/dL (0.2-1.2); Calc. Creatinine Clearance 0 mL/min (70-130); Calcium 9.3 mg/dL (7.8-10.44); Carbon Dioxide 24 mmol/L (22-29); Chloride 103 mmol/L (98-107); Estimated GFR-MDRD Greater than 90; Globulin 3.1 g/dL (2.4-3.5); Glucose 235 mg/dL (70-105); Potassium 3.9 mmol/L (3.5-5.1); Protein, Total 7.6 g/dL (6.0-8.3); Sodium 138 mmol/L (136-145)
[2020-04-08] MEDS ORDERED: Furosemide 40 MG/4 ML VIAL ONE (03:17)
[2020-04-08] MEDS ORDERED: Acetaminophen 325 MG TAB PO PRN (03:42)
[2020-04-08] MEDS ORDERED: Senokot S 8.6-50 MG TAB PO PRN (03:42)
[2020-04-08] MEDS ORDERED: Bisacodyl 5 MG TAB PO PRN (03:42)
[2020-04-08] MEDS ORDERED: Dextrose 5% in Water 1,000 ML IV PRN (03:53)
[2020-04-08] MEDS ORDERED: Dextrose 50% Abboject 50 ML SYRINGE SLOW IVP PRN (03:53)
[2020-04-08 04:50] VITALS: BMI 36.9
[2020-04-08] MEDS ORDERED: Diltiazem 125 MG in Sodium Chloride 0.9% 100 ML IVPB SCH (05:45)
[2020-04-08] MEDS: HumaLOG 300 UNITS/3 ML VIAL SC PRN ×2 (06:15→12:09)
--- NOTE | 2020-04-08 06:18 | HP ---
CHIEF COMPLAINT: Shortness of breath. HISTORY OF PRESENT ILLNESS: The patient is a very pleasant 59-year-old male, who comes into the hospital with complaints of shortness of breath x1 day. The patient was recently discharged from the hospital around the of this month for shortness of breath. He was diagnosed with atrial fibrillation with rapid ventricular response. He underwent an echocardiogram, which indicated an EF of 28%. He also had a cardiac cath, which indicated an EF of 40% and only medical therapy was recommended at that time. The patient states that he has been compliant with his medications. The patient states that on Thursday, he woke up, did not feel well all day. On Thursday, he has continued to not feel well. At this time, he checked his heart rate. His heart rate was around 107 to 110. The patient stated, however, tonight when he came into the hospital, he got very short of breath. He had some mild chest pain, however, the chest pain resolved, but he continued to have shortness of breath, which concerned him so he came into the ER. He denies any fevers or chills, any nausea, vomiting, or diarrhea. PAST MEDICAL HISTORY: 1. He has a history of atrial fibrillation. 2. Obesity. 3. Hyperlipidemia. 4. Obstructive sleep apnea. 5. GERD. 6. Diabetes. PAST SURGICAL HISTORY: The patient has not had any surgical history. He has had a cardiac catheterization. FAMILY HISTORY: Mother had breast cancer. Father at 57 with coronary artery disease. SOCIAL HISTORY: He is a former smoker. No alcohol use. Reports sometimes marijuana use, otherwise nothing. He is a full code. REVIEW OF SYSTEMS: All negative except for the ones mentioned above in the HPI. ALLERGIES: HE HAS NO KNOWN DRUG ALLERGIES. MEDICATIONS: As of the following. He takes, 1. Eliquis 5 mg twice a day. 2. Diltiazem 90 mg twice a day. 3. Hydralazine 10 mg twice a day. 4. Carvedilol 6.25 twice a day. 5. Lisinopril 5 mg daily. 6. Metformin 1000 mg twice a day. 7. Omeprazole 40 mg daily. 8. Pravastatin 80 mg daily. PHYSICAL EXAMINATION: VITAL SIGNS: Temperature of 97.2, pulse 94, respiratory rate 20, oxygen saturation 95% on room air, and blood pressure 157/91. GENERAL: He is awake, alert, and oriented x3. Does not appear in distress. CV: Irregularly irregular. LUNGS: Mild crackles to bilateral lower lung bases. ABDOMEN: Soft and nontender. Bowel sounds are present x2. EXTREMITIES: Mild lower extremity pitting edema. NEUROVASCULAR: There are no focal deficits noted. SKIN: No cuts, lesions, or bruises noted. DIAGNOSTIC DATA: He had a chest x-ray done, which indicated pulmonary congestion. Laboratory; his WBC was 7.7, hemoglobin of 13.9, hematocrit of 42.4, platelets of 154. Chemistry; sodium of 138, potassium of 3.9, BUN of 8, creatinine of 0.79, glucose of 235. His BNP was 215. His troponin x1 was negative. ASSESSMENT AND PLAN: The patient is a very pleasant 59-year-old male, who presents to the hospital with complaints of shortness of breath. 1. Atrial fibrillation with rapid ventricular response. The patient was given diuretics. He states he feels much better. He is currently on a Cardizem drip, I will increase the drip to 7.5. Cardiology has been consulted. He recently had an echocardiogram. We will continue his Eliquis. The patient most likely will require diuretics on discharge. We will trend his troponins. 2. Hypertension. We will continue his blood pressure medications. 3. Obesity. I have educated on diet, weight loss. 4. Diabetes. We will continue his home medications. We will check a hemoglobin A1c. 5. Deep venous thrombosis prophylaxis. The patient is already on Eliquis. Job ID: [id number]
[2020-04-08 06:27] LABS: Troponin I 0.018 ng/mL (< 0.028)
[2020-04-08 08:54] LABS: Anion Gap 13 mmol/L (10-20); BUN (Urea Nitrogen) 8 mg/dL (8.4-25.7); Calc. Creatinine Clearance 198 mL/min (70-130); Calcium 9.2 mg/dL (7.8-10.44); Carbon Dioxide 28 mmol/L (22-29); Chloride 102 mmol/L (98-107); Estimated GFR-MDRD Greater than 90; Glucose 229 mg/dL (70-105); Magnesium 1.8 mg/dL (1.6-2.6); Potassium 3.8 mmol/L (3.5-5.1); Sodium 139 mmol/L (136-145)
[2020-04-08 09:00] LABS: Troponin I 0.015 ng/mL (< 0.028)
[2020-04-08] MEDS ORDERED: Lisinopril 5 MG TAB PO SCH (09:00)
[2020-04-08] MEDS: Carvedilol 6.25 MG TAB PO SCH ×2 (09:09→16:17)
[2020-04-08] MEDS: Atorvastatin Calcium 20 MG TAB PO SCH (09:09)
[2020-04-08] MEDS: Apixaban 5 MG TAB PO SCH ×2 (09:09→22:17)
[2020-04-08] MEDS: metFORMIN 500 MG TAB PO SCH ×2 (09:10→22:17)
[2020-04-08] MEDS: Furosemide 40 MG/4 ML VIAL SLOW IVP SCH (09:11)
[2020-04-08] MEDS ORDERED: Potassium Chloride 10 MEQ TAB PO SCH (09:15)
[2020-04-08] MEDS ORDERED: Magnesium 2 GM/50 ML 2 GM in Premix Bag 1 BAG IVPB SCH (09:15)
[2020-04-08] MEDS ORDERED: Amiodarone 200 MG TAB PO SCH (09:30)
--- NOTE | 2020-04-08 09:54 | CON ---
DATE OF CONSULTATION: 04/08/2020 REASON FOR CONSULTATION: Atrial fibrillation, recurrent. PRIMARY PETROLEUM REFINING FIRER: Charline Johnson MD HISTORY OF PRESENT ILLNESS: Mr. Astudillo is a 59-year-old gentleman. He recently was admitted to the hospital with difficulty breathing and tachycardia. He was found to have atrial fibrillation with a rapid ventricular response. Ultimately underwent cardiac catheterization, found to have a 50% to 60% lesion in the right coronary artery. The ejection fraction at the catheterization was estimated at 40% to 45%. He was discharged home on carvedilol and diltiazem as well as apixaban. He states he has been taking all his medicines at home. He states he has been taking the apixaban. The patient was awakened last night with feeling of his heart racing and could not breathe. He came to the emergency room. He was found to have atrial fibrillation with a rapid rate. He has been given intravenous Cardizem. He is feeling much better now. His heart rate down in the 80s. He was tachycardic early this morning. No chest pain. MEDICATIONS: Prior to admission; 1. He was on diltiazem. 2. He was on amlodipine. 3. Carvedilol. 4. Lisinopril. 5. Apixaban 5 mg twice a day. ALLERGIES: NONE KNOWN. SOCIAL HISTORY: No alcohol or tobacco abuse. REVIEW OF SYSTEMS: VISION: No changes. HEARING: No changes. PULMONARY: No cough or wheezing. GASTROINTESTINAL: No nausea, vomiting, or diarrhea. SKIN: No rashes. NEUROLOGIC: No unilateral weakness or numbness. PSYCHIATRIC: No unusual depression or anxiety. HEMATOLOGIC: No unusual bruising. GENITOURINARY: No burning with urination. PAST MEDICAL HISTORY: 1. Atrial fibrillation. 2. Obesity. 3. Hyperlipidemia. 4. Obstructive sleep apnea. PAST SURGICAL HISTORY: No surgical history. FAMILY HISTORY: Mother with breast cancer. ALLERGIES: NONE KNOWN. PHYSICAL EXAMINATION: GENERAL: This is a pleasant gentleman. He is 6 feet 2 inches tall and 287 pounds. HEENT: Eyes, sclerae nonicteric. Mouth, mucous membranes moist. NECK: Supple. No lymphadenopathy. LUNGS: Clear. CARDIAC: Irregularly irregular. No murmur, rub, or gallop. ABDOMEN: Obese and nontender. No hepatosplenomegaly. EXTREMITIES: Warm and dry. No clubbing. No cyanosis. There is no edema. SKIN: Warm and dry. PSYCHIATRIC: Mood and affect normal. NEUROLOGIC: Grossly normal. PERTINENT LABORATORY DATA: Troponin 0.015 and BNP 215. ASSESSMENT: 1. Atrial fibrillation with a rapid ventricular response. 2. Congestive heart failure, systolic-diastolic mixed. 3. Obesity. 4. Obesity hypoventilation syndrome. PLAN: 1. Add amiodarone. 2. He is receiving intravenous furosemide. 3. On intravenous diltiazem. 4. I would recommend cardioversion. The patient has been on apixaban for 3 weeks. We will leave it up to Dr. Johnson whether she proceeds to cardioversion with or without transesophageal echo. Further recommendations are up-to-date and the recommendations are three weeks of anticoagulation prior to cardioversion, which he has had done. Amiodarone would be his best long-term option to try to maintain sinus rhythm. Obviously weight loss is going to be important. At some point, consideration for atrial fibrillation ablation could be considered. The patient does not tolerate atrial fibrillation well at all as it went into congestive heart failure with a rapid rate. Dr. Johnson to resume care tomorrow. Job ID: [id number]
--- NOTE | 2020-04-08 10:53 | RAD ---
SINGLE VIEW CHEST: HISTORY: Shortness of breath and tachycardia. COMPARISON: 06/18/2009 FINDINGS: A single view of the chest shows an enlarged cardiomediastinal. Bilateral perihilar fullness is seen. Increased interstitial markings are present. There is no evidence of consolidation, mass or pleural effusion. IMPRESSION: Cardiomegaly. POS: [facility]
[2020-04-08] MEDS: Amiodarone 200 MG TAB PO SCH ×2 (15:56→22:16)
[2020-04-08] MEDS: Potassium Chloride 10 MEQ TAB PO SCH (16:17)
[2020-04-08] MEDS ORDERED: HumaLOG 300 UNITS/3 ML VIAL SC PRN (21:24)
[2020-04-08] MEDS: Lisinopril 5 MG TAB PO SCH (22:17)
[2020-04-09 03:45] LABS: #Eosinphils 0.2 thou/uL (0.0-0.7); #Lymphocytes 2.5 thou/uL (1.20-3.40); #Monocytes 0.7 thou/uL (0.11-0.59); #Neutrophils 5.2 thou/uL (1.40-6.50); %Basophils 0.5 % (0.0-1.0); %Eosinophils 1.9 % (0.0-10.0); %Lymphocytes 29.2 % (21.0-51.0); %Monocytes 8.6 % (0.0-10.0); %Neutrophils 59.8 % (42.0-75.0); Hemoglobin 13.9 g/dL (14.0-18.0); Mean Corpuscular HGB CONC 32.6 g/dL (32.0-36.0); Mean Corpuscular Hemoglobin 26.5 pg (27.0-31.0); Mean Corpuscular Volume 81.3 fL (78.0-98.0); Mean Platelet Volume 8.9 fL (7.4-10.4); Platelet Count 164 thou/uL (130-400); RBC Distribution Width 13.2 % (11.5-14.5); Red Blood Cell (RBC) Count 5.23 mill/uL (4.70-6.10); White Blood Cell (WBC) Count 8.6 thou/uL (4.8-10.8)
[2020-04-09 03:47] LABS: Hemoglobin A1c 7.5 % (4.0-6.0)
[2020-04-09 04:01] LABS: Phosphorus 4.1 mg/dL (2.3-4.7)
[2020-04-09 04:02] LABS: Anion Gap 12 mmol/L (10-20); BUN (Urea Nitrogen) 12 mg/dL (8.4-25.7); Calc. Creatinine Clearance 181 mL/min (70-130); Calcium 9.5 mg/dL (7.8-10.44); Carbon Dioxide 29 mmol/L (22-29); Chloride 103 mmol/L (98-107); Estimated GFR-MDRD Greater than 90; Glucose 155 mg/dL (70-105); Potassium 3.9 mmol/L (3.5-5.1); Sodium 140 mmol/L (136-145)
[2020-04-09] MEDS: HumaLOG 300 UNITS/3 ML VIAL SC PRN (06:20)
[2020-04-09] MEDS: Potassium Chloride 10 MEQ TAB PO SCH ×2 (08:24→16:29)
[2020-04-09] MEDS: Atorvastatin Calcium 20 MG TAB PO SCH (08:25)
[2020-04-09] MEDS: Amiodarone 200 MG TAB PO SCH ×2 (08:25→16:23)
[2020-04-09] MEDS: Apixaban 5 MG TAB PO SCH (08:25)
[2020-04-09] MEDS: Lisinopril 5 MG TAB PO SCH (08:26)
[2020-04-09] MEDS: Carvedilol 6.25 MG TAB PO SCH ×2 (08:26→16:29)
[2020-04-09] MEDS: Furosemide 40 MG/4 ML VIAL SLOW IVP SCH (08:26)
[2020-04-09] MEDS: metFORMIN 500 MG TAB PO SCH (08:26)
[2020-04-09] MEDS ORDERED: PROPOFOL 40 ML ONE (13:35)
[2020-04-09 16:33] VITALS: BP 157/74; TEMP 98.8
--- NOTE | 2020-04-10 08:31 | DIS ---
DATE OF ADMISSION: 04/08/2020 DATE OF DISCHARGE: 04/09/2020 DISCHARGE DISPOSITION: Home. FOLLOWUP: 1. Follow up with primary care physician, Dr. Gordon in 1 week. 2. Follow up with Cardiology, Dr. Johnson in 2 weeks. DISCHARGE MEDICATIONS: Cardizem was discontinued. He was started on amiodarone taper. He will continue all other home medications including carvedilol, lisinopril, and amlodipine per Cardiology. PHYSICAL EXAMINATION: The patient was seen and examined on the day of discharge. Denies any new complaints. No chest pain, shortness of breath, or palpitations reported. BRIEF HOSPITAL COURSE: The patient is a 59-year-old male with paroxysmal atrial fibrillation, presented to the hospital with shortness of breath. His workup was consistent with atrial fibrillation with rapid ventricular response. He was monitored on telemetry unit. He was started on Cardizem drip. He underwent [place] cardioversion on the day of discharge. He remained in sinus rhythm. He has been started on amiodarone loading. Cardizem has been discontinued. He will continue carvedilol along with amiodarone per Cardiology. He appears stable for discharge. His vital signs showed temperature 98.8 with pulse rate of 85 with blood pressure in 140s to 150s. FINAL DIAGNOSES: 1. Atrial fibrillation with rapid ventricular response, status post transesophageal echocardiography and cardioversion this admission. 2. Hypertension. 3. Obesity with a BMI of 36.2. 4. Diabetes mellitus, type 2. 5. Hypertension. 6. Obstructive sleep apnea, not on CPAP. 7. Gastroesophageal reflux disease. 8. Coronary artery disease in the right coronary artery, approximately 50% to 60%. The cath was on March 19, 2020. 9. Moderate mitral regurgitation. 10. Chvo-kw-[id number] tricuspid regurgitation. 11. Left atrial dilatation with ejection fraction of 50% to 55% on the transesophageal echocardiography this admission. Job ID: [id number]
--- NOTE | 2020-04-10 09:38 | CCLSPC ---
DIAGNOSIS: Atrial fibrillation with rapid ventricular response. INDICATION FOR PROCEDURE: A 59-year-old gentleman with atrial fibrillation with rapid ventricular response and history of atrial fibrillation in the past, has been treated by medical management. He was on Eliquis for the last three weeks. He presented to the hospital again with atrial fibrillation with rapid ventricular response. He was advised to undergo electrical cardioversion of the atrial fibrillation. He was taken to the recovery room, where he underwent short-acting propofol. Using a transesophageal probe, it was passed down the distal esophagus. This shows the following. IMPRESSION: 1. Normal left ventricular systolic function. Ejection fraction estimated at 50% to 55%. 2. Left atrial dilatation. 3. No evidence of left atrial appendage thrombus. There is a small patent foramen ovale with [id number] shunt. 4. Moderate mitral valve regurgitation. 5. Ucge-fm-jlnopxps tricuspid valve regurgitation. 6. Structurally normal valves otherwise. Job ID: [id number]
--- NOTE | 2020-04-12 07:53 | EKG ---
Test Reason : POST [place]/CARDIOVERSI Blood Pressure : / mmHG Vent. Rate : 060 BPM Atrial Rate : 060 BPM P-R Int : 168 ms QRS Dur : 110 ms QT Int : 456 ms P-R-T Axes : 045 -11 038 degrees QTc Int : 456 ms Normal sinus rhythm Normal ECG When compared with ECG of 16-MAR-2020 13:20, Sinus rhythm has replaced Atrial fibrillation Vent. rate has decreased BY [address] Catrachita NUNEZ ([id number]) on 04/12/2020 7:52:30 AM Referred By: BEBE Confirmed By:DR. Catrachita NUNEZ
== END 2020-04-09 19:30 | disposition home or self-care (01) | DRG 309 ==
LOC: ERS 01:59 → 2NO 03:34
PROVIDERS: ADMIT Internal Medicine; ATTEND Internal Medicine
PROC: B24BZZ4 Ultrasonography of Heart with Aorta, Transesophageal (ICD-10-PCS; principal; 2020-04-09)
PROC: 5A2204Z Restoration of Cardiac Rhythm, Single (ICD-10-PCS; 2020-04-09)
DX: I48.0 Paroxysmal atrial fibrillation (principal); I50.42 Chronic combined systolic (congestive) and diastolic (congestive) heart failure; E66.2 Morbid (severe) obesity with alveolar hypoventilation; E78.5 Hyperlipidemia, unspecified; E11.9 Type 2 diabetes mellitus without complications; K21.9 Gastro-esophageal reflux disease without esophagitis; I11.0 Hypertensive heart disease with heart failure; I25.10 Atherosclerotic heart disease of native coronary artery without angina pectoris; I08.1 Rheumatic disorders of both mitral and tricuspid valves; Z87.891 Personal history of nicotine dependence; Z79.84 Long term (current) use of oral hypoglycemic drugs; Z79.01 Long term (current) use of anticoagulants; Z79.899 Other long term (current) drug therapy; Z68.36 Body mass index [BMI] 36.0-36.9, adult
CPT/HCPCS: 36415; 36416; 71045; 80048; 80053; 83036; 83735; 83880; 84100; 84484; 85025; 90471; 90732; 92960; 93005; 93010; 93312; 93798; 96365; 96366; 96375; 96376; G0009; J1940; J2704; J3475; J3490

== ENCOUNTER 2020-06-21 09:47 | Outpatient (CLI) | payer OTHER ==
--- NOTE | 2020-06-21 10:58 | CT ---
CT chest with IV contrast HISTORY: Lung nodule. Follow-up. COMPARISON: Information given was that a previous exam was performed at [facility]. Exten sive review of the system, however, failed to supply a comparison exam. Lungs are well-inflated. No focal mass, consolidation, pleural fluid, or pneumothorax. No enlarged lymph nodes evident within the mediastinum. There is calcification within the coronary arteries. Within the partially visualized upper abdomen, a 0.4 cm calculus is present within a nondilated calyx of the right kidney. Dilated vascular structures within the left upper quadrant, lateral to the stomach, are very tortuous. IMPRESSION : Lung nodule not demonstrated on this exam. Previous study not available (not found that [facility]). Atherosclerosis. Small nonobstructing right renal calculus. Left upper quadrant varicosities, suggesting portal venous hypertension.
[2020-06-21] MEDS ORDERED: Iopamidol-370 76% 500 ML 1 ML ONE (13:25)
== END 2020-06-21 09:48 | disposition home or self-care (01) ==
LOC: BICCT 09:47
PROVIDERS: ATTEND Internal Medicine Critical Care Medicine
DX: R91.1 Solitary pulmonary nodule (principal); I25.10 Atherosclerotic heart disease of native coronary artery without angina pectoris; N20.0 Calculus of kidney; I86.8 Varicose veins of other specified sites
CPT/HCPCS: 71260; Q9967

== ENCOUNTER 2020-12-26 15:19 | Outpatient (CLI) | payer OTHER | END 2020-12-26 15:20 | disposition home or self-care (01) | LOC: CTENTCT 15:19 | PROVIDERS: ATTEND Specialist | DX: J32.9 Chronic sinusitis, unspecified (principal); J34.2 Deviated nasal septum; J34.3 Hypertrophy of nasal turbinates; R09.81 Nasal congestion | CPT/HCPCS: 70486 ==

== ENCOUNTER 2021-01-21 07:23 | Outpatient (CLI) | payer OTHER ==
[2021-01-21 09:44] LABS: Hemoglobin 11.2 g/dL (13.5-17.5); Mean Corpuscular HGB CONC 29.8 g/dL (32.0-36.0); Mean Corpuscular Hemoglobin 23.6 pg (27.0-33.0); Mean Corpuscular Volume 79.3 fl (81.2-95.1); Platelet Count 148 10x3/uL (150-450); RBC Distribution Width 14.7 % (11.5-14.5); Red Blood Cell (RBC) Count 4.74 10x6/uL (4.32-5.72); White Blood Cell (WBC) Count 6.8 10x3/uL (3.5-10.5)
[2021-01-21 14:56] LABS: SARS-CoV-2 PCR by NAA Not Detected (NotDetected)
== END 2021-01-21 07:24 | disposition home or self-care (01) ==
LOC: LABBT 07:23
PROVIDERS: ATTEND Specialist
DX: Z01.812 Encounter for preprocedural laboratory examination (principal); J32.9 Chronic sinusitis, unspecified; J32.0 Chronic maxillary sinusitis; J32.1 Chronic frontal sinusitis; J32.2 Chronic ethmoidal sinusitis; J34.2 Deviated nasal septum; J34.3 Hypertrophy of nasal turbinates; J31.0 Chronic rhinitis; Z20.822 Contact with and (suspected) exposure to COVID-19
CPT/HCPCS: 85027; 87635; 93005; 93010; U0003; U0005

== ENCOUNTER 2021-01-28 08:08 | Outpatient (CLI) | payer OTHER ==
[2021-01-28 18:57] LABS: SARS-CoV-2 PCR by NAA Not Detected (NotDetected)
== END 2021-01-28 08:09 | disposition home or self-care (01) ==
LOC: LABBT 08:08
PROVIDERS: ATTEND Specialist
DX: Z01.812 Encounter for preprocedural laboratory examination (principal); J32.0 Chronic maxillary sinusitis; J32.1 Chronic frontal sinusitis; J32.2 Chronic ethmoidal sinusitis; J34.2 Deviated nasal septum; J34.3 Hypertrophy of nasal turbinates; J31.0 Chronic rhinitis; Z20.822 Contact with and (suspected) exposure to COVID-19
CPT/HCPCS: 87635; U0003; U0005

== ENCOUNTER 2021-01-31 08:44 | Day surgery (SDC) | payer OTHER ==
[2021-01-23 13:47] VITALS: BMI 36.7
[2021-01-31] MEDS ORDERED: AFRIN NASAL MIST 15 ML BOT ONE ×2 (09:30→10:13)
[2021-01-31] MEDS ORDERED: Midazolam HCl 2 mg/2 ml Vial ONE (09:30)
[2021-01-31] MEDS ORDERED: Lidocaine 1% w/Epinephrine 1:100K 20 ML VIAL ONE (10:13)
[2021-01-31 10:17] LABS: Anion Gap 9 mmol/L (10-20); BUN (Urea Nitrogen) 11 mg/dL (8.4-25.7); Calc. Creatinine Clearance 208 mL/min (70-130); Calcium 8.8 mg/dL (7.8-10.44); Carbon Dioxide 28 mmol/L (22-29); Chloride 106 mmol/L (98-107); Glucose 153 mg/dL (70-105); Sodium 139 mmol/L (136-145)
[2021-01-31] MEDS ORDERED: Fentanyl 250 MCG/5 ML VIAL ONE (10:26)
[2021-01-31] MEDS ORDERED: ePHEDrine Sulfate 50 MG/10 ML VIAL ONE (10:44)
[2021-01-31] MEDS ORDERED: Dexamethasone 20 MG/5 ML VIAL ONE (10:44)
[2021-01-31] MEDS ORDERED: Ondansetron PF 4 MG/2 ML Vial ONE (10:44)
[2021-01-31] MEDS ORDERED: Lidocaine 2% w/Epinephrine 1:200K 20 ML VIAL ONE (10:44)
[2021-01-31] MEDS ORDERED: Glycopyrrolate 0.2 MG/ML 5 ML SYRINGE ONE (10:44)
[2021-01-31] MEDS ORDERED: Rocuronium Bromide 10 MG/ML (10ML VIAL) ONE (10:44)
[2021-01-31] MEDS ORDERED: Lidocaine 1% PF 5 ML VIAL ONE (10:44)
[2021-01-31] MEDS ORDERED: Labetalol HCl 100 MG/20 ML VIAL ONE (10:44)
[2021-01-31] MEDS ORDERED: Ketorolac Tromethamine 30 MG/ML VIAL ONE (10:44)
[2021-01-31] MEDS ORDERED: PROPOFOL 200 MG/20 ML VIAL ONE (10:44)
[2021-01-31] MEDS ORDERED: Bupivacaine HCl 0.5%/Epinephrine 1:200,000/PF 30 ml Vial ONE (10:44)
[2021-01-31] MEDS ORDERED: EPINEPHrine 1 MG/ML AMP ONE ×2 (10:52→11:03)
[2021-01-31] MEDS ORDERED: Fentanyl 100 MCG/2 ML VIAL ONE (12:18)
[2021-01-31] MEDS ORDERED: Hydrocodone-Acetamin 15 ML UDCUP ONE ×2 (13:52→13:53)
== END 2021-01-31 14:38 | disposition home or self-care (01) ==
LOC: SDC 08:44
PROVIDERS: ATTEND Specialist
PROC: 099X8ZZ Drainage of Left Sphenoid Sinus, Via Natural or Artificial Opening Endoscopic (ICD-10-PCS; principal; 2021-01-31)
PROC: 09BU8ZZ Excision of Right Ethmoid Sinus, Via Natural or Artificial Opening Endoscopic (ICD-10-PCS; principal; 2021-01-31)
PROC: 09BS8ZZ Excision of Right Frontal Sinus, Via Natural or Artificial Opening Endoscopic (ICD-10-PCS; principal; 2021-01-31)
PROC: 09BM8ZZ Excision of Nasal Septum, Via Natural or Artificial Opening Endoscopic (ICD-10-PCS; principal; 2021-01-31)
PROC: 09BL8ZZ Excision of Nasal Turbinate, Via Natural or Artificial Opening Endoscopic (ICD-10-PCS; principal; 2021-01-31)
PROC: 09BV8ZZ Excision of Left Ethmoid Sinus, Via Natural or Artificial Opening Endoscopic (ICD-10-PCS; principal; 2021-01-31)
PROC: 099W8ZZ Drainage of Right Sphenoid Sinus, Via Natural or Artificial Opening Endoscopic (ICD-10-PCS; principal; 2021-01-31)
PROC: 099Q8ZZ Drainage of Right Maxillary Sinus, Via Natural or Artificial Opening Endoscopic (ICD-10-PCS; principal; 2021-01-31)
PROC: 099R8ZZ Drainage of Left Maxillary Sinus, Via Natural or Artificial Opening Endoscopic (ICD-10-PCS; principal; 2021-01-31)
PROC: 09BT8ZZ Excision of Left Frontal Sinus, Via Natural or Artificial Opening Endoscopic (ICD-10-PCS; principal; 2021-01-31)
DX: J32.8 Other chronic sinusitis (principal); J31.0 Chronic rhinitis; J34.2 Deviated nasal septum; J34.3 Hypertrophy of nasal turbinates; E11.9 Type 2 diabetes mellitus without complications; I10 Essential (primary) hypertension; Z79.4 Long term (current) use of insulin; Z79.899 Other long term (current) drug therapy
CPT/HCPCS: 36415; 36416; 80048; J0171; J1100; J1885; J2250; J2405; J2704; J3010

== ENCOUNTER 2022-10-21 09:39 | Outpatient (CLI) | payer OTHER | END 2022-10-21 09:40 | disposition home or self-care (01) | LOC: RAD 09:39 | PROVIDERS: ATTEND Obstetrics & Gynecology | DX: M54.2 Cervicalgia (principal); M25.511 Pain in right shoulder; M47.812 Spondylosis without myelopathy or radiculopathy, cervical region | CPT/HCPCS: 72052 ==

== ENCOUNTER 2024-09-01 20:10 | Inpatient (IN) | payer OTHER ==
[2024-09-01 21:12] LABS: #Basophils 0.03 10x3/uL (0.0-0.2); %Basophils 0.5 % (0.0-1.0); %Eosinophils 1.6 % (0.0-10.0); %Lymphocytes 28.3 % (21.0-51.0); %Monocytes 9.4 % (0.0-10.0); Hematocrit 43.6 % (42.0-52.0); Hemoglobin 13.6 g/dL (14.0-18.0); Mean Corpuscular HGB CONC 31.2 g/dL (32.0-36.0); Mean Corpuscular Hemoglobin 26.8 pg (27.0-31.0); Mean Platelet Volume 10.6 fL (7.4-10.4); Platelet Count 128 10x3/uL (130-400); RBC Distribution Width 13.8 % (11.5-14.5); Red Blood Cell (RBC) Count 5.07 mill/uL (4.70-6.10)
[2024-09-01 21:14] LABS: ALT (SGPT) 28 U/L (8-55); AST (SGOT) 39 U/L (5-34); Alkaline Phosphatase 76 U/L (40-110); Anion Gap 14 mmol/L (10-20); BUN (Urea Nitrogen) 11 mg/dL (8.4-25.7); Bilirubin, Total 0.7 mg/dL (0.2-1.2); Calc. Creatinine Clearance 0 mL/min (70-130); Calcium 8.6 mg/dL (7.8-10.44); Carbon Dioxide 22 mmol/L (23-31); Chloride 107 mmol/L (98-107); Estimated GFR 105; Globulin 3.2 g/dL (2.4-3.5); Glucose 179 mg/dL (80-115); Potassium 3.8 mmol/L (3.5-5.1); Protein, Total 7.2 g/dL (5.8-8.1); Sodium 139 mmol/L (136-145)
[2024-09-01 21:22] LABS: Troponin I 0.017 ng/mL (< 0.028)
[2024-09-01] MEDS ORDERED: Dextrose 50% Abboject 50 ML SYRINGE SLOW IVP PRN (23:57)
[2024-09-01] MEDS ORDERED: Dextrose 5% in Water 1,000 ML IV PRN (23:57)
[2024-09-01] MEDS ORDERED: Glucagon 1 MG/ML KIT IM PRN (23:57)
[2024-09-01] MEDS ORDERED: Insulin Lispro 100 UNIT/ML 10 ML VIAL SC PRN ×2 (23:57)
[2024-09-02 00:23] VITALS: BMI 38.1
[2024-09-02] MEDS: Furosemide 20 MG (2 mL) VIAL SLOW IVP SCH ×3 (01:14→13:10)
[2024-09-02 05:00] LABS: #Basophils Less than 0.03 10x3/uL (0.0-0.2); %Basophils 0.4 % (0.0-1.0); %Eosinophils 1.9 % (0.0-10.0); %Lymphocytes 29.4 % (21.0-51.0); %Monocytes 9.2 % (0.0-10.0); %Neutrophils 58.9 % (42.0-75.0); Hematocrit 40.3 % (42.0-52.0); Hemoglobin 12.4 g/dL (14.0-18.0); Mean Corpuscular HGB CONC 30.8 g/dL (32.0-36.0); Mean Corpuscular Hemoglobin 26.6 pg (27.0-31.0); Mean Corpuscular Volume 86.5 fL (78.0-98.0); Mean Platelet Volume 10.7 fL (7.4-10.4); Platelet Count 122 10x3/uL (130-400); RBC Distribution Width 13.8 % (11.5-14.5); Red Blood Cell (RBC) Count 4.66 mill/uL (4.70-6.10)
[2024-09-02 05:12] LABS: Anion Gap 13 mmol/L (10-20); BUN (Urea Nitrogen) 10 mg/dL (8.4-25.7); Calc. Creatinine Clearance 208 mL/min (70-130); Calcium 8.5 mg/dL (7.8-10.44); Carbon Dioxide 26 mmol/L (23-31); Chloride 105 mmol/L (98-107); Estimated GFR 104; Glucose 154 mg/dL (80-115); Potassium 3.6 mmol/L (3.5-5.1); Sodium 140 mmol/L (136-145)
[2024-09-02 08:28] LABS: Influenza A by NAA Not Detected (NotDetected); Influenza B by NAA Not Detected (NotDetected); SARS-CoV-2 NAA Rapid Test Not Detected (NotDetected)
[2024-09-02] MEDS: Apixaban 5 MG TAB PO SCH (09:22)
[2024-09-02] MEDS: Empagliflozin 25 MG TAB PO SCH (09:22)
[2024-09-02] MEDS: Fenofibrate 48 MG TAB PO SCH (09:22)
[2024-09-02] MEDS: Carvedilol 25 MG TAB PO SCH (09:22)
[2024-09-02] MEDS: Rosuvastatin 20 MG TAB PO SCH (09:22)
[2024-09-02] MEDS: metFORMIN 500 MG TAB PO SCH (09:23)
[2024-09-02] MEDS: Lisinopril 20 MG TAB PO SCH (09:23)
[2024-09-02] MEDS: Amlodipine 10 MG TAB PO SCH (09:23)
[2024-09-02] MEDS: Pantoprazole DR 40 MG TAB PO SCH (09:23)
[2024-09-02] MEDS: Insulin Glargine 30 UNITS/0.3 ML VIAL SC SCH (09:24)
[2024-09-02] MEDS: Tamsulosin HCl 0.4 MG CAP PO SCH (21:21)
[2024-09-03 07:15] LABS: Anion Gap 16 mmol/L (10-20); BUN (Urea Nitrogen) 13 mg/dL (8.4-25.7); Calc. Creatinine Clearance 185 mL/min (70-130); Calcium 9.3 mg/dL (7.8-10.44); Carbon Dioxide 25 mmol/L (23-31); Chloride 105 mmol/L (98-107); Estimated GFR 101; Glucose 148 mg/dL (80-115); Potassium 3.6 mmol/L (3.5-5.1); Sodium 142 mmol/L (136-145)
[2024-09-03 08:22] VITALS: BP 135/97; TEMP 97.5
[2024-09-03] MEDS: Lidocaine 1% (PF) 30 ML VIAL ONE (09:58)
== END 2024-09-03 12:36 | disposition home or self-care (01) | DRG 291 ==
LOC: ERS 20:10 → 2NO 22:59 → OBSVTOIN 09-02 15:10
PROVIDERS: ADMIT Family Medicine; ATTEND Family Medicine
PROC: 0J970ZZ Drainage of Back Subcutaneous Tissue and Fascia, Open Approach (ICD-10-PCS; principal; 2024-09-03)
DX: I11.0 Hypertensive heart disease with heart failure (principal); J96.01 Acute respiratory failure with hypoxia; L02.212 Cutaneous abscess of back [any part, except buttock and flank]; I48.91 Unspecified atrial fibrillation; E11.9 Type 2 diabetes mellitus without complications; K21.9 Gastro-esophageal reflux disease without esophagitis; I50.9 Heart failure, unspecified; E66.9 Obesity, unspecified; N40.0 Benign prostatic hyperplasia without lower urinary tract symptoms; I10 Essential (primary) hypertension; G47.33 Obstructive sleep apnea (adult) (pediatric); Z79.899 Other long term (current) drug therapy; Z79.4 Long term (current) use of insulin; Z79.84 Long term (current) use of oral hypoglycemic drugs; Z87.891 Personal history of nicotine dependence
CPT/HCPCS: 36415; 36416; 71045; 80048; 80053; 83880; 84484; 85025; 93005; 93306; 96374; 96376; G0378; J1815; J1940

== ENCOUNTER 2024-11-04 01:54 | Emergency (ER) | payer OTHER ==
[2024-11-04 02:15] LABS: #Basophils 0.03 10x3/uL (0.0-0.2); %Basophils 0.5 % (0.0-1.0); %Eosinophils 1.4 % (0.0-10.0); %Neutrophils 62.8 % (42.0-75.0); Hematocrit 41.6 % (42.0-52.0); Hemoglobin 12.8 g/dL (14.0-18.0); Mean Corpuscular HGB CONC 30.8 g/dL (32.0-36.0); Mean Corpuscular Hemoglobin 25.7 pg (27.0-31.0); Mean Corpuscular Volume 83.5 fL (78.0-98.0); Mean Platelet Volume 10.7 fL (7.4-10.4); Platelet Count 139 10x3/uL (130-400); RBC Distribution Width 15.2 % (11.5-14.5); Red Blood Cell (RBC) Count 4.98 mill/uL (4.70-6.10)
[2024-11-04 02:31] LABS: ALT (SGPT) 21 U/L (8-55); AST (SGOT) 35 U/L (5-34); Albumin 4.1 g/dL (3.4-4.8); Alkaline Phosphatase 88 U/L (40-110); Anion Gap 14 mmol/L (10-20); BUN (Urea Nitrogen) 15 mg/dL (8.4-25.7); Bilirubin, Total 0.9 mg/dL (0.2-1.2); Calc. Creatinine Clearance 0 mL/min (70-130); Calcium 9.2 mg/dL (7.8-10.44); Carbon Dioxide 23 mmol/L (23-31); Chloride 107 mmol/L (98-107); Estimated GFR 102; Globulin 3.8 g/dL (2.4-3.5); Glucose 143 mg/dL (80-115); Potassium 3.8 mmol/L (3.5-5.1); Protein, Total 7.9 g/dL (5.8-8.1); Sodium 140 mmol/L (136-145)
[2024-11-04 02:38] LABS: Troponin I 0.017 ng/mL (< 0.028)
[2024-11-04] MEDS ORDERED: Furosemide 40 MG (4 mL) VIAL ONE (04:00)
== END 2024-11-04 04:38 | disposition home or self-care (01) ==
LOC: ERS 01:54
DX: J96.01 Acute respiratory failure with hypoxia (principal); I48.91 Unspecified atrial fibrillation; I11.0 Hypertensive heart disease with heart failure; I50.9 Heart failure, unspecified; E11.9 Type 2 diabetes mellitus without complications; E66.9 Obesity, unspecified; G47.33 Obstructive sleep apnea (adult) (pediatric); N40.0 Benign prostatic hyperplasia without lower urinary tract symptoms; E78.5 Hyperlipidemia, unspecified; Z79.84 Long term (current) use of oral hypoglycemic drugs; Z79.899 Other long term (current) drug therapy
CPT/HCPCS: 71045; 80053; 83880; 84484; 85025; 93005; 94760; 96374; J1940

== ENCOUNTER 2025-05-17 21:08 | Emergency (ER) | payer OTHER ==
[2025-05-17 21:50] LABS: #Basophils Less than 0.03 10x3/uL (0.0-0.2); #Eosinophils 0.15 10x3/uL (0.0-0.7); #Monocytes 0.43 10x3/uL (0.11-0.59); #Neutrophils 2.87 10x3/uL (1.40-6.50); %Basophils 0.4 % (0.0-1.0); %Eosinophils 2.7 % (0.0-10.0); %Lymphocytes 37.3 % (21.0-51.0); %Monocytes 7.7 % (0.0-10.0); %Neutrophils 51.5 % (42.0-75.0); Hematocrit 44.2 % (42.0-52.0); Hemoglobin 15.5 g/dL (14.0-18.0); Mean Corpuscular Hemoglobin 28.6 pg (27.0-31.0); Mean Corpuscular Volume 81.5 fL (78.0-98.0); Platelet Count 165 10x3/uL (130-400); Red Blood Cell (RBC) Count 5.42 mill/uL (4.70-6.10); White Blood Cell (WBC) Count 5.57 10x3/uL (4.8-10.8)
[2025-05-17 22:42] LABS: Troponin I 0.014 ng/mL (< 0.028)
[2025-05-17 23:32] LABS: ALT (SGPT) 46 U/L (Less than 45); Albumin 4.2 g/dL (3.1-4.5); Alkaline Phosphatase 130 U/L (40-110); Anion Gap 16 mmol/L (10-20); BUN (Urea Nitrogen) 11 mg/dL (8.4-25.7); Bilirubin, Total 0.4 mg/dL (0.3-1.2); CK (CPK) 102 U/L (30-200); Calc. Creatinine Clearance 0 mL/min (70-130); Calcium 8.7 mg/dL (7.8-10.44); Carbon Dioxide 22 mmol/L (23-31); Chloride 100 mmol/L (98-107); Globulin 5.2 g/dL (2.4-3.5); Glucose 254 mg/dL (80-115); Magnesium 1.8 mg/dL (1.6-2.6); Potassium 4.0 mmol/L (3.5-5.1); Sodium 134 mmol/L (136-145)
[2025-05-17 23:44] LABS: AST (SGOT) 82 U/L (11-34)
[2025-05-18 00:48] LABS: Troponin I 0.024 ng/mL (< 0.028)
== END 2025-05-18 01:07 | disposition home or self-care (01) ==
LOC: ERS 21:08
DX: R07.89 Other chest pain (principal); I10 Essential (primary) hypertension; E78.5 Hyperlipidemia, unspecified; I48.91 Unspecified atrial fibrillation; E11.9 Type 2 diabetes mellitus without complications; Z79.899 Other long term (current) drug therapy
CPT/HCPCS: 71045; 80053; 82550; 83735; 83880; 84484; 85025; 93005